=== PATIENT | male | born 1955 | race Caucasian/White ===

== ENCOUNTER 2018-02-15 22:48 | Emergency (ER) | payer OTHER ==
[2018-02-15 23:10] VITALS: PULSE 105; O2SAT 97
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
[2018-02-15 23:57] VITALS: BP 127/65
[2018-02-16] MEDS ORDERED: NORCO 5/325 MG ONE (00:11)
[2018-02-16] MEDS: NORCO 5/325 MG PO ONE (00:13)
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
== END 2018-02-16 00:33 | disposition home or self-care (01) ==
LOC: ED 22:48
DX: S52.502A Unspecified fracture of the lower end of left radius, initial encounter for closed fracture (principal); V29.88XA Motorcycle rider (driver) (passenger) injured in other specified transport accidents, initial encounter; Y92.488 Other paved roadways as the place of occurrence of the external cause; I25.2 Old myocardial infarction; Z85.51 Personal history of malignant neoplasm of bladder
CPT/HCPCS: 29126; 70450; 70486; 71045; 73110; 99285; A9270-GY